=== PATIENT | female | born 1955 ===

== ENCOUNTER 2020-10-25 04:51 | Emergency (ER) | payer SELFPAY ==
[~2020-10-25] VITALS: Ht 172.7 cm; Wt 90.0 kg
--- NOTE | 2020-10-25 05:08 | NUR ---
PT FABIANA VIERA, PT WAS AT [facility] INTOXICATED AND ASKED SOME ONE TO CALL AN AMBULANCE, PT STATED THAT SHE NEEDED HELP, BUT DID NOT STATE A MEDICAL COMPLAINT, PT WALKED INTO ER WITH EMS TO ROOM AND STATED THAT SHE NEEDED A RX REFILL, PT DID NOT ANSWER QUESTIONS APPROPIATLY, REFUSED TO CHANGE INTO A GOWN, PT INTOXICATED
[2020-10-25 05:57] LABS: BASOPHILS % (AUTO) 1 % (0-1); EOSINOPHILS % (AUTO) 2 % (1-7); LYMPHOCYTES % (AUTO) 33 % (22-44); MEAN CORPUSCULAR HEMOGLOBIN 25.1 pg (27.0-34.8); MEAN CORPUSCULAR HGB CONC 32.2 g/dL (32.4-35.8); MEAN PLATELET VOLUME 8.9 fL (7.4-10.4); MONOCYTES % (AUTO) 8 % (2-9); NEUTROPHILS % (AUTO) 56 % (42-75); PLATELET COUNT 255 x10^3/uL (130-400); RED BLOOD COUNT 4.32 x10^6/uL (3.82-5.3); RED CELL DISTRIBUTION WIDTH 16.7 % (9.6-15.2)
[2020-10-25 06:03] LABS: MD NO
[2020-10-25 06:08] LABS: ALANINE AMINOTRANSFERASE 21 U/L (12-78); ALBUMIN 3.3 g/dL (3.4-5.0); ANION GAP 6 mmol/L (5-15); CALCIUM 8.6 mg/dL (8.5-10.1); CHLORIDE 105 mmol/L (98-107)
[2020-10-25 06:09] LABS: ALKALINE PHOSPHATASE 87 U/L (45-117); BILIRUBIN,TOTAL 0.5 mg/dL (0.2-1.0); TOTAL PROTEIN 7.3 g/dL (6.4-8.2)
[2020-10-25 06:12] LABS: SALICYLATE LEVEL < 1.7 mg/dL (2.8-20.0)
[2020-10-25 06:55] VITALS: BP 167/89
--- NOTE | 2020-10-25 06:55 | NUR ---
assumed care of pt. report from Courtney LOCKETT. pt here for ETOH intoxication. per report, pt was sad after the recent of her sister and stated to previous RN that she had bene drinking ETOH and using cocaine. pt currently sleeping in position of comfort with lights dimmed. no family at bedside
--- NOTE | 2020-10-25 07:05 | NUR ---
pt has gottent out of bed and is pulling monitoring equipment out of the wall attempting to leave the room. attempting to calm pt. pt states that she needs to go to the BR. pt unplugged and ambualted to BR
--- NOTE | 2020-10-25 07:10 | NUR ---
pt agitated and has urinated on the floor offered pt clean dry garments form donation closet, pt has refused. attempted to assess pt, pt uncooperative. attemtped to assess pt plan for D/C, pt states that she has nowhere to go, and that the staff here needs to figure out how to get her home to [facility] attempted to find alternatives for pt, pt uncooperative and yelling at this RN. chart up for MD valdez
--- NOTE | 2020-10-25 07:15 | NUR ---
Dr. Urban at bedside for recheck pt continues yelling at staff and states that she has nowhere to go and we need to figure out how to get her home attempted to assess any resources in the area available to pt, pt uncooperative
== END 2020-10-25 07:33 | disposition home or self-care (01) ==
LOC: ED 07:30
DX: F10.129 Alcohol abuse with intoxication, unspecified (principal); F32.9 Major depressive disorder, single episode, unspecified; Y90.0 Blood alcohol level of less than 20 mg/100 ml
CPT/HCPCS: 36415; 80053; 80299; 80320; 80329; 85025; 99283; G0480